=== PATIENT | female | born 1985 | race Caucasian/White ===

== ENCOUNTER → 2019-08-12 | Outpatient (CLI) | payer MEDICAID, SELFPAY ==
[2019-08-12 19:49] LABS: Chlamydia Trachomatis by PCR Negative (Negative); Neisserai gonorrhoeae by PCR Negative (Negative); Probe Check PASS; Sample Adequacy Control PASS; Specimen Processing Control PASS
[2019-11-01 15:35] LABS: HPV Reflexed? NOT INDICATED
== END | disposition home or self-care (01) ==
PROVIDERS: PCP Obstetrics & Gynecology; Referring Provider Obstetrics & Gynecology; Visit Provider Obstetrics & Gynecology
DX: Z12.4 Encounter for screening for malignant neoplasm of cervix (principal); Z11.3 Encounter for screening for infections with a predominantly sexual mode of transmission
CPT/HCPCS: 87491; 87591; 88175; G0145

== ENCOUNTER → 2019-10-14 16:03 | Outpatient (CLI) | payer MEDICAID, SELFPAY ==
[2019-10-14 16:52] LABS: Color, Urine Yellow (Yellow); Glucose, Dipstick Normal (Normal); Ketone-Dipstick 50 mg/dl (Negative); Leukocyte Esterase-Dipstick Negative /ul (Negative); Nitrite-Dipstick Negative (Negative); Occult Blood-Urine Negative /ul (Negative); Protein-Dipstick 15 mg/dl (Negative); Specific Gravity, Urine 1.015 (1.002-1.030); Urine Bilirubin Dipstick Negative (Negative); Urine Clarity Sl. Cloudy (Clear); Urine Urobilinogen Normal (Normal)
[2019-10-14 16:54] LABS: Absolute Lymphocyte Count 2.37 X10^3/uL (0.83-4.51); Absolute Neutrophil Count 8.3 X10^3/uL (2.0-7.7); Basophil# 0.11 X10^3/uL; Basophil% 0.9 % (0-1); Eosinophil# 0.44 X10^3/uL; Eosinophils% 3.5 % (0-5); Hematocrit 36.6 % (37-47); Hemoglobin 12.5 g/dL (12.0-15.0); Lymphocyte # 2.37 X10^3/ul (4.0); Lymphocyte % 19.1 % (19-41); Mean Corp Hgb Conc 34.2 g/dL (32-36); Mean Corpuscular Hgb 32.5 pg (27.0-32.0); Mean Corpuscular Volume 95.1 fL (81-99); Mean Platelet Vol. 10.1 fl (6.2-12.0); Monocyte# 0.77 X10^3/uL; Monocyte% 6.2 % (0-10); NRBC Flagged by Analyzer 0 % (0-5); Neutrophil # 8.29 X10^3/uL (2.7-7.7); Neutrophil % 66.6 % (47-70); Platelet Count 268 K/mm3 (150-450); RBC Distribution Width CV 12.6 % (11.6-14.6); RBC Distribution Width SD 43.8 fl (35.1-43.9); Red Blood Count 3.85 M/mm3 (4.2-5.4); White Blood Count 12.4 K/mm3 (4.4-11.0)
[2019-10-14 17:07] LABS: Amphetamine Urine VISTA NEGATIVE (<1000 ng/mL); Barbiturate Urine VISTA NEGATIVE (< 200 ng/mL); Benzodiazepine Urine VISTA NEGATIVE (< 200 ng/mL); Cocaine Urine VISTA NEGATIVE (< 300 ng/mL); Ecstacy Urine VISTA NEGATIVE (< 500 ng/mL); Methadone Urine VISTA NEGATIVE (< 300 ng/mL); PCP Urine VISTA NEGATIVE (< 25 ng/mL); THC Urine VISTA NEGATIVE (< 50 ng/mL); Vista UDS pH Range 6
[2019-10-14 17:28] LABS: Thyroid Stim Hormone (TSH) 3.25 uIU/mL (0.358-3.74)
[2019-10-17 09:30] LABS: HIV - WCH Non-Reactive (Nonreactive); Hepatitis B Surface Antigen Non-Reactive (Nonreactive); Hepatitis C Antibody Non-Reactive (Nonreactive); Rubella IgG 87.9 IU/mL
[2019-10-20 03:25] LABS: Prenatal RPR NONREACTIVE (NONREACTIVE)
== END ==
PROVIDERS: Visit Provider Obstetrics & Gynecology
DX: Z34.82 Encounter for supervision of other normal pregnancy, second trimester (principal)
CPT/HCPCS: 36415; 80307; 81002; 84443; 85025; 86703; 86762; 86803; 87340

== ENCOUNTER → 2019-12-08 10:56 | Outpatient (CLI) | payer MEDICAID, SELFPAY ==
[2019-12-08 14:12] LABS: Hematocrit 35.7 % (37-47); Hemoglobin 12.1 g/dL (12.0-15.0); Mean Corp Hgb Conc 33.9 g/dL (32-36); Mean Corpuscular Hgb 31.4 pg (27.0-32.0); Mean Corpuscular Volume 92.7 fL (81-99); Mean Platelet Vol. 10.1 fl (6.2-12.0); Platelet Count 270 K/mm3 (150-450); RBC Distribution Width CV 13.2 % (11.6-14.6); RBC Distribution Width SD 44.7 fl (35.1-43.9); Red Blood Count 3.85 M/mm3 (4.2-5.4)
[2019-12-08 14:14] LABS: Glucose Challenge Gest 1H 50g 192 mg/dL (70-140)
== END ==
PROVIDERS: Visit Provider Obstetrics & Gynecology
DX: Z34.83 Encounter for supervision of other normal pregnancy, third trimester (principal)
CPT/HCPCS: 36415; 82950; 85027

== ENCOUNTER → 2019-12-16 09:37 | Outpatient (CLI) | payer MEDICAID, SELFPAY ==
[2019-12-16 10:50] LABS: Glucose GTT-Gestation. Fasting 101 mg/dL (<105)
[2019-12-16 11:44] LABS: Glucose GTT-Gestational 1 Hr 228 mg/dL (<190)
[2019-12-16 13:04] LABS: Glucose GTT-Gestational 2 Hr 211 mg/dL (<165)
[2019-12-16 13:41] LABS: Glucose GTT-Gestational 3 Hr 151 L (<145)
== END ==
PROVIDERS: Referring Provider Obstetrics & Gynecology; Visit Provider Obstetrics & Gynecology
DX: O24.912 Unspecified diabetes mellitus in pregnancy, second trimester (principal); Z3A.00 Weeks of gestation of pregnancy not specified
CPT/HCPCS: 36415; 82951; 82952

== ENCOUNTER 2020-01-02 09:30 | Outpatient (RCR) | payer MEDICAID, SELFPAY | END 2020-01-04 23:59 | LOC: DC 09:30 | PROVIDERS: Visit Provider Obstetrics & Gynecology | DX: Z71.3 Dietary counseling and surveillance (principal); O99.210 Obesity complicating pregnancy, unspecified trimester; E66.9 Obesity, unspecified; Z3A.00 Weeks of gestation of pregnancy not specified | CPT/HCPCS: 97802; G0108 ==

== ENCOUNTER 2020-02-02 11:00 | Outpatient (RCR) | payer MEDICAID, SELFPAY | END 2020-02-02 23:59 | disposition home or self-care (01) | LOC: DC 11:00 | PROVIDERS: Visit Provider Obstetrics & Gynecology | DX: Z71.3 Dietary counseling and surveillance (principal); O24.410 Gestational diabetes mellitus in pregnancy, diet controlled; O99.210 Obesity complicating pregnancy, unspecified trimester; E66.9 Obesity, unspecified; Z3A.00 Weeks of gestation of pregnancy not specified ==

== ENCOUNTER → 2020-02-10 10:23 | Outpatient (CLI) | payer MEDICAID, SELFPAY | PROVIDERS: Referring Provider Obstetrics & Gynecology; Visit Provider Obstetrics & Gynecology | DX: Z03.818 Encounter for observation for suspected exposure to other biological agents ruled out (principal) | CPT/HCPCS: 87635; C9803; U0003 ==

== ENCOUNTER 2020-02-20 11:15 | Outpatient (CLI) | payer MEDICAID, SELFPAY ==
[2020-02-20 11:52] VITALS: BP 126/65; PULSE 84; TEMP 36.4
--- NOTE | 2020-02-20 13:12 | PCM.PN.BLA ---
Progress Note at 38/4w visit to triage for NST due to closure of office today. NST REACTIVE 155/mod reinaldo/+accel/no decel. Reports MENDES with head cold, BP wnl. Precautions given. Discharge home with precautions. F/u for PNV, and 1wfor c/s. STROKE Vital Signs/Narrative: Vital Signs Temp Pulse BP 02/20/20 11:52 97.6 F L 84 126/65 H
== END 2020-02-20 12:00 | disposition home or self-care (01) ==
LOC: WPOUT 11:23 → WP 11:23
PROVIDERS: Referring Provider Obstetrics & Gynecology; Visit Provider Obstetrics & Gynecology
DX: Z34.93 Encounter for supervision of normal pregnancy, unspecified, third trimester (principal)
CPT/HCPCS: 59025; 59050; 99218; G0378

== ENCOUNTER → 2020-02-24 10:20 | Outpatient (CLI) | payer MEDICAID, SELFPAY | PROVIDERS: Referring Provider Student in an Organized Health Care Education/Training Program; Visit Provider Student in an Organized Health Care Education/Training Program | DX: Z03.818 Encounter for observation for suspected exposure to other biological agents ruled out (principal) | CPT/HCPCS: 87635; C9803; U0003 ==

== ENCOUNTER 2020-02-28 04:50 | Inpatient (IN) | payer MEDICAID, SELFPAY ==
[2020-02-28] VITALS (24 sets, daily range): BP systolic 95–122; BP diastolic 42–79; PULSE 59–78; RESP 15–24; TEMP 35.9–36.8; O2SAT 95–100; BMI 44.4
[2020-02-28] MEDS: Acetaminophen 500 MG Tablet 1000 MG PO ×4 (05:17→23:41)
[2020-02-28] MEDS: Lactated Ringers 1,000 ML 999 ML IV (05:29)
[2020-02-28 05:45] LABS: Absolute Lymphocyte Count 3.15 X10^3/uL (0.83-4.51); Absolute Neutrophil Count 10.6 X10^3/uL (2.0-7.7); Basophil# 0.12 X10^3/uL; Basophil% 0.8 % (0-1); Eosinophil# 0.56 X10^3/uL; Eosinophils% 3.6 % (0-5); Hematocrit 38.6 % (37-47); Lymphocyte # 3.15 X10^3/ul (4.0); Lymphocyte % 20.1 % (19-41); Mean Corp Hgb Conc 33.7 g/dL (32-36); Mean Corpuscular Hgb 30.3 pg (27.0-32.0); Mean Platelet Vol. 10.2 fl (6.2-12.0); Monocyte# 1.09 X10^3/uL; Monocyte% 6.9 % (0-10); NRBC Flagged by Analyzer 0 % (0-5); Neutrophil # 10.56 X10^3/uL (2.7-7.7); Neutrophil % 67.3 % (47-70); Platelet Count 289 K/mm3 (150-450); RBC Distribution Width CV 14.2 % (11.6-14.6); Red Blood Count 4.29 M/mm3 (4.2-5.4); White Blood Count 15.7 K/mm3 (4.4-11.0)
[2020-02-28 06:01] LABS: Bedside Glucose 100 mg/dL (70-110)
[2020-02-28] MEDS: Lactated Ringers 1,000 ML 150 ML IV (06:32)
[2020-02-28] MEDS: Sodium Citrate/Citric Acid 30 ML UDC PO (07:05)
[2020-02-28] MEDS: Cefazolin 2 GM in 0.9% Normal Saline 100 ML IV (07:05)
--- NOTE | 2020-02-28 07:22 | PCM.HP.BLA ---
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 reports do occur. . TEST METHODOLOGY: This liquid based ThinPrep(R) pap test was screened with the use of an image guided system. . The HPV DNA reflex criteria were not met with this specimen result therefore, no HPV testing was performed. . Source.............Cervix;Endocervix LMP / Prev Treat...TYH=[id number] No. of containers..01 ThinPrep Vial Reviewed by EVANGELIST Impression /Plan: 39+ week intrauterine for repeat at 39+ weeks gestation. Preparations in progress for delivery.
--- NOTE | 2020-02-28 07:26 | OP.PCM_ITS ---
Delivery Classification: Scheduled Final SHANTA: 03/01/20 Final SHANTA Source: US <20 weeks Gestational age: 39 Weeks and 5 Days automotive parts clerk: Liz Westbrook Type of Anesthesia:: Spinal - With Duramorph Date of Procedure: 02/28/20 Pre-Operative Diagnosis: Prior section, gestational diabetes type A2 Post-Operative Diagnosis: Prior section, gestational diabetes type A2 Description of Procedure: Surgeon: Alcon Cordoba MD, FACOG Anesthesia: Britney Luz CRNA Procedure: Repeat Low Transverse Cervical Caesarean Section, Lysis of Adhesions Findings: Viable male with Apgars of 8/9 in occiput anterior presentation with clear amniotic fluid and normal three-vessel placenta. Dense adhesions of the omentum to the anterior abdominal wall, uterus and sidewalls. Indication: This is a 34-year-old who presents for her fourth at 39+ weeks gestation. care has otherwise been uneventful except for type A2 gestational diabetes on glyburide. The patient has been counseled regarding the risk and indications of this procedure including the possibility of bleeding infection and injury to surrounding structures such as bowel bladder. All questions were answered. Procedure: Patient was taken to the operating room where after spinal anesthesia was placed, the patient was prepped and draped in usual sterile fashion and a Corcoran catheter was placed. The abdomen was entered through the patient's prior Pfannenstiel incision and peritoneum was entered bluntly. Omental adhesions were immediately encountered. After developing a bladder flap on the lower uterine segment a low transverse incision was made on the uterus and head was easily delivered onto the operative field the nose mouth and oropharynx were bulb suctioned. Subsequently a viable male infant was born with Apgars of 8/9. The infant was noted to cry move all extremities vigorously on the operative field. The umbilical cord was doubly clamped and ligated and handed to the nursery personnel who were present for the delivery. Placenta was delivered and noted to be 3 vessels and normal. Uterus was exteriorized and remaining placental tissue was removed. The uterus was then closed in 2 layers first with running locked 0 Vicryl suture followed by a second imbricating layer with 0 Vicryl suture. 0 Vicryl suture was then used in a horizontal mattress interrupted fashion to affect final hemostasis of the uterine incision line. Omental adhesions were taken down in approximately 6 areas ligating each adhesion with 0 Vicryl suture tie. Normal fallopian tubes and ovaries were visualized and the uterus was returned to the pelvis. Hemostasis was noted and rectus abdominis muscles were reapproximated in the midline with interrupted Number 0 Vicryl suture in a horizontal mattress fashion. Fascia was closed with running Number 1 PDS Strata fix suture. Subcutaneous tissue was irrigated with copious amounts of saline solution and then closed with running 3-0 Vicryl suture. Skin was closed with 4-0 monocryl suture in a running subcuticular fashion. Steri strips and a Mepilex dressing were placed across the incision. The patient tolerated the procedure well and was taken to the recovery room in satisfactory condition. Sponge, needle, and instrument counts were all reportedly correct. EBL was less than 500 cc. Ancef 2 gms IV was given prior to the procedure. Spicemen to Pathology: None Complications: None Amniotic Fluid Description: Clear Placenta Disposition: [facility] Specimen(s) sent to pathology: None Drain: Corcoran to straight drain Fluids Replaced: Crystalloid Cord Entanglement: None Cord Vessel Description: 3 Vessels Esitmated Blood Loss (ml): 500 cc Infant Gender: Male (1 minute): 8 (5 minute): 9 Antibiotic Given: Ancef 2 grams IV x1 Pt instructed on risks of surgery: Bleeding, Infection, Injury to surrounding structure(s) including bowel and bladder Complications: None - Admit VTE Documentation VTE Present on Admission: Yes VTE Mechan Device Prophylaxis: SCD's VTE Pharm Prophylaxis ordered?: Yes
--- NOTE | 2020-02-28 08:44 | DCINST_ITS ---
Discharge Diet: No Restrictions Discharge Activity: May not drive while taking narcotic pain medications., May Shower, May Take a Tub Bath May resume sexual activity in: 4-6 weeks Lifting Restrictions: 20 pounds Additional Activity Instructions:: Nothing in the vagina for 4-6 weeks. You may return to work/school in 6 weeks. Call your doctor if your incision/area has: Continuous Slow Oozing, Sudden Increased Bleeding, Increased Pain/ Swelling, Increased Redness, Foul Smelling Discharge Call your doctor if you observe: Fever of 101 or Higher, Inability to urinate, Inability to have a bowel movement, Using more than one pad per hour Additional Instructions: If you experience any of the following, contact your healthcare provider. * Bleeding that soaks a pad every hour for 2 hours * Fever 100.4 or higher * Unrelieved incision or abdominal pain * Swelling, redness, discharge or bleeding from your incision or episiotomy site * Your incision begins to separate * Problems urinating (including inability to urinate or burning while urinating). * Visual changes * Severe headache * Flu-like symptoms * Pain or redness in one of both of your breasts * Pain, warmth, tenderness or swelling in your legs, especially the calf area * Frequent nausea and vomiting * Symptoms of depression or anxiety If you experience any of the following, call 911 or go to the nearest Emergency Room. * Chest pain * Problems breathing * Seizure activity * Partial or complete paralysis of a body part, slurred speech, weakness or drooping of the face, or a sudden inability to walk or hold your balance Allergies/Adverse Reactions: Allergies Penicillins Allergy (Mild, Verified 02/28/20 05:13) Itching rash Medications to take at Discharge Docusate Sodium [Colace] 100 mg PO BID PRN PRN #60 cap 02/28/20 Glyburide 5 mg PO DINNER 02/28/20 Oxycodone [Oxyir] 5 mg PO Q6H PRN PRN 7 Days #20 tablet 02/28/20 The following prescriptions were given: Docusate Sodium [Colace] 100 mg PO BID PRN PRN #60 cap PRN Reason: Constipation Transmission Status: Pending to [facility] Oxycodone [Oxyir] 5 mg PO Q6H PRN PRN 7 Days #20 tablet PRN Reason: Pain Score 6-10 Transmission Status: Sent to [facility] Follow-Up: Call to make an appointment with your doctor for an incision check in 1-2 weeks. You will also need a 6 week post- follow up appointment. Test results from this visit will be discussed in further detail at your follow- up appointment, if applicable. Please Follow Up With: Alcon Cordoba MD - [phone] When: Call to make an appointment for an incision check in 2 weeks. Primary Care Physician: Care Physician,No Primary [Primary Care Provider] -
[2020-02-28] MEDS: Oxytocin 30 units/NS 500 ml 30 UNITS/500 ML IV.SOLN 167 UNITS IV (09:00)
[2020-02-28 09:31] LABS: Bedside Glucose 84 mg/dL (70-110)
[2020-02-28] MEDS: Senna/Docusate Sodium 1 Tablet PO (11:50)
[2020-02-28] MEDS: Lactated Ringers 1,000 ML 100 ML IV ×2 (12:15→20:27)
[2020-02-28] MEDS: Ondansetron 4 MG/2 ML Vial IV (13:06)
--- NOTE | 2020-02-28 13:41 | NURSING ---
Called DR. Cordoba about patient's urinary output of 75cc since 9am today. Dr. Cordoba wants her catheter flushed and a bladder scan done. Orders 250cc bolus of NS if no results from catheter flush and no urinary retention according to bladder scan.
[2020-02-28] MEDS: Ketorolac 30 MG/ML Syringe IV ×2 (14:23→21:14)
--- NOTE | 2020-02-28 14:50 | NURSING ---
Pt's bladder scanned, showed 13ml in bladder. Flushed park catheter with 60mls of sterile water. No clots noted and flushed with ease. Urine clear, dark yellow noted in tubing prior to flushing. Pt nauseated but tolerated procedure well.
[2020-02-28] MEDS: Cefazolin 1 GM/50 ML BAG IV ×2 (15:20→22:47)
[2020-02-28] MEDS: 0.9% Normal Saline 250 ML IV.SOLN. IV (16:51)
[2020-02-28] MEDS: DiphenhydrAMINE 25 MG Capsule PO (17:57)
[2020-02-28] MEDS: Enoxaparin 40 MG/0.4 ML Syringe SC (20:14)
[2020-02-28 21:06] LABS: Anion Gap 7 (5-15); BUN 13 mg/dL (7-18); BUN/Creat Ratio 13.5 RATIO (10-20); Calcium,Total 8.4 mg/dL (8.5-10.1); Chloride 110 mmol/L (98-107); Creatinine, Serum 0.96 mg/dL (0.55-1.02); EST Glomerular Filtration Rate 71 mL/min (>60); Est Glom Filt Rate - Afr Amer 86 mL/min (>60); Estimated Creatinine Clearance 81.81 ml/min; Glucose 131 mg/dL (74-106); Potassium 3.4 mmol/L (3.5-5.1); Sodium Level 139 mmol/L (136-145)
[2020-02-29] VITALS (10 sets, daily range): BP systolic 92–116; BP diastolic 49–68; PULSE 63–110; RESP 14–18; TEMP 36.7–36.8; O2SAT 95–99
[2020-02-29] MEDS: Ketorolac 30 MG/ML Syringe IV ×2 (02:58→09:26)
[2020-02-29] MEDS: 0.9% Saline Lock 10 ML Syringe IV (02:58)
[2020-02-29 06:05] LABS: Bedside Glucose 97 mg/dL (70-110)
[2020-02-29 06:08] LABS: Hematocrit 35.9 % (37-47); Hemoglobin 11.7 g/dL (12.0-15.0); Mean Corp Hgb Conc 32.6 g/dL (32-36); Mean Corpuscular Volume 92.1 fL (81-99); Platelet Count 234 K/mm3 (150-450); RBC Distribution Width CV 14.4 % (11.6-14.6); RBC Distribution Width SD 48.3 fl (35.1-43.9); White Blood Count 13.9 K/mm3 (4.4-11.0)
[2020-02-29] MEDS: Acetaminophen 500 MG Tablet 1000 MG PO ×3 (06:09→18:14)
--- NOTE | 2020-02-29 09:07 | PCM.PN.OB ---
Subjective: Patient without complaints. Tolerating diet well. Pain well controlled. Voiding on own. Denies flatus. Objective: Wound is clean, dry, intact with no drainage noted on Mepilex dressing. Good urine output. Hemoglobin and creatinine okay. - Physical Exam Vitals/I&O's: Vital Signs Temp Pulse Resp BP Pulse Ox 98.2 F 76 16 103/49 L 98 02/29/20 07:47 02/29/20 07:47 02/29/20 07:47 02/29/20 07:47 02/29/20 07:47 Oxygen Delivery Method Room Air Weight: 284 lb Body Mass Index (BMI) 44.4 Intake and Output for Last 24 Hours 02/27/20 02/28/20 02/29/20 23:59 23:59 23:59 Intake Total 3121.66 / 3121.66 Output Total 350 / 350 800 / 800 Balance 2771.66 / 2771.66 -800 / -800 Laboratory Results 02/28/20 09:21: POC Glucose 84 02/28/20 20:30: Sodium 139, Potassium 3.4 L, Chloride 110 H, Carbon Dioxide 22.0, Anion Gap 7, BUN 13, Creatinine 0.96, Estim Creat Clear Calc 81.81, Est GFR (MDRD) Af Amer 86, Est GFR (MDRD) Non-Af 71, BUN/Creatinine Ratio 13.5, Glucose 131 H, Calcium 8.4 L 02/29/20 05:52: POC Glucose 97 02/29/20 05:55: WBC 13.9 H, RBC 3.90 L, Hgb 11.7 L, Hct 35.9 L, MCV 92.1, MCH 30.0, MCHC 32.6, RDW Std Deviation 48.3 H, RDW Coeff of Jeffery 14.4, Plt Count 234, MPV 10.0 Current Medications Acetaminophen (Acetaminophen 500 Mg Tablet) 1,000 mg PO Q6 [facility] Last Admin: 02/29/20 06:09 Dose: 1,000 mg Documented by: Bisacodyl (Bisacodyl 10 Mg Suppository) 10 mg RECTAL UD PRN PRN Reason: If no BM Enoxaparin Sodium (Enoxaparin 40 Mg/0.4 Ml Syringe) 40 mg SC DAILY@1999 [facility] Last Admin: 02/28/20 20:14 Dose: 40 mg Documented by: Hydrocortisone (Hydrocortisone 2.5% Crm) 1 applic TOPICAL TID PRN PRN; Protocol PRN Reason: Discomfort Lactated Ringer's () 1,000 mls @ 100 mls/hr IV .Q10H [facility] Last Admin: 02/29/20 05:46 Dose: Not Given Documented by: Ibuprofen (Ibuprofen 600 Mg Tablet) 600 mg PO Q6H [facility] Methylergonovine Maleate (Methylergonovine 0.2 Mg/Ml Ampul) 0.2 mg IM X1 PRN PRN Reason: Uterine Atony Naloxone HCl (Naloxone 0.4 Mg/Ml Syringe) 0.02 mg IV Q1M PRN PRN Reason: RR <10 and pt unresponsive Naloxone HCl (Naloxone 0.4 Mg/Ml Syringe) 0.02 mg IV Q1M PRN PRN Reason: RR <10 and pt unresponsive Ondansetron HCl (Ondansetron 4 Mg/2 Ml Vial) 4 mg IV Q4H PRN PRN PRN Reason: Nausea Last Admin: 02/28/20 13:06 Dose: 4 mg Documented by: Oxycodone HCl (Oxycodone 5 Mg Tablet) 5 - 10 mg PO Q4H PRN PRN PRN Reason: Pain Score 4-10 Prochlorperazine Edisylate (Prochlorperazine 10 Mg/2 Ml Vial) 10 mg IV Q6H PRN PRN PRN Reason: NAUSEA Senna/Docusate Sodium (Senna/Docusate Sodium 1 Tablet) 0 tablet PO DAILY [facility] Last Admin: 02/28/20 11:50 Dose: 2 tablet Documented by: Simethicone (Simethicone 80 Mg Tablet) 80 mg PO HS PRN PRN Reason: Indigestion/stomach pain Last Admin: 02/28/20 17:55 Dose: 80 mg Documented by: Sodium Chloride (0.9% Saline Lock 10 Ml Syringe) 5 - 15 ml IV UD PRN PRN Reason: SALINE FLUSH Last Admin: 02/29/20 02:58 Dose: 10 ml Documented by: Medical Necessity - Tobacco Use Smoking Status: Former smoker Assessment/Plan Doing well postoperative day #1 status post repeat . Continuing present care.
[2020-02-29] MEDS: Senna/Docusate Sodium 1 Tablet PO (11:53)
[2020-02-29] MEDS: Ibuprofen 600 MG Tablet PO ×2 (14:31→19:39)
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
[2020-02-29] MEDS: Bisacodyl 10 MG Suppository RECTAL (20:03)
[2020-02-29] MEDS: Enoxaparin 40 MG/0.4 ML Syringe SC (22:02)
[2020-03-01] MEDS: Acetaminophen 500 MG Tablet 1000 MG PO ×4 (00:39→18:17)
[2020-03-01] MEDS: Ibuprofen 600 MG Tablet PO ×4 (00:40→18:16)
[2020-03-01 00:42] VITALS: BP 139/70; PULSE 72; RESP 16; TEMP 36.8; O2SAT 96
--- NOTE | 2020-03-01 08:05 | PN.OBGYN_ITS ---
Subjective: Patient without complaints. Tolerating diet well. Positive flatus. Pain well controlled without narcotic. Baby likely able to go home later today. Objective: Afebrile, vital signs stable. Good urine output. - Physical Exam Vitals/I&O's: Vital Signs Temp Pulse Resp BP Pulse Ox 98.2 F 72 16 139/70 H 96 03/01/20 00:42 03/01/20 00:42 03/01/20 00:42 03/01/20 00:42 03/01/20 00:42 Oxygen Delivery Method Room Air Weight: 284 lb Body Mass Index (BMI) 44.4 Intake and Output for Last 24 Hours 02/28/20 02/29/20 03/01/20 23:59 23:59 23:59 Intake Total 3121.66 / 3121.66 Output Total 350 / 350 800 / 800 Balance 2771.66 / 2771.66 -800 / -800 Current Medications Acetaminophen (Acetaminophen 500 Mg Tablet) 1,000 mg PO Q6 [facility] Last Admin: 03/01/20 06:28 Dose: 1,000 mg Documented by: Bisacodyl (Bisacodyl 10 Mg Suppository) 10 mg RECTAL UD PRN PRN Reason: If no BM Last Admin: 02/29/20 20:03 Dose: 10 mg Documented by: Enoxaparin Sodium (Enoxaparin 40 Mg/0.4 Ml Syringe) 40 mg SC DAILY@1999 [facility] Last Admin: 02/29/20 22:02 Dose: 40 mg Documented by: Hydrocortisone (Hydrocortisone 2.5% Crm) 1 applic TOPICAL TID PRN PRN; Protocol PRN Reason: Discomfort Ibuprofen (Ibuprofen 600 Mg Tablet) 600 mg PO Q6H [facility] Last Admin: 03/01/20 06:28 Dose: 600 mg Documented by: Methylergonovine Maleate (Methylergonovine 0.2 Mg/Ml Ampul) 0.2 mg IM X1 PRN PRN Reason: Uterine Atony Naloxone HCl (Naloxone 0.4 Mg/Ml Syringe) 0.02 mg IV Q1M PRN PRN Reason: RR <10 and pt unresponsive Naloxone HCl (Naloxone 0.4 Mg/Ml Syringe) 0.02 mg IV Q1M PRN PRN Reason: RR <10 and pt unresponsive Ondansetron HCl (Ondansetron 4 Mg/2 Ml Vial) 4 mg IV Q4H PRN PRN PRN Reason: Nausea Last Admin: 02/28/20 13:06 Dose: 4 mg Documented by: Oxycodone HCl (Oxycodone 5 Mg Tablet) 5 - 10 mg PO Q4H PRN PRN PRN Reason: Pain Score 4-10 Prochlorperazine Edisylate (Prochlorperazine 10 Mg/2 Ml Vial) 10 mg IV Q6H PRN PRN PRN Reason: NAUSEA Senna/Docusate Sodium (Senna/Docusate Sodium 1 Tablet) 0 tablet PO DAILY [facility] Last Admin: 02/29/20 11:53 Dose: 1 tablet Documented by: Simethicone (Simethicone 80 Mg Tablet) 80 mg PO [facility] PRN PRN Reason: Indigestion/stomach pain Last Admin: 03/01/20 06:32 Dose: 80 mg Documented by: Sodium Chloride (0.9% Saline Lock 10 Ml Syringe) 5 - 15 ml IV UD PRN PRN Reason: SALINE FLUSH Last Admin: 02/29/20 02:58 Dose: 10 ml Documented by: Medical Necessity - Tobacco Use Smoking Status: Former smoker Assessment/Plan Doing well postoperative day #2 status post repeat . Will discharge to home with routine instructions.
[2020-03-01 08:15] VITALS: BP 135/73; PULSE 78; RESP 16; TEMP 36.6; O2SAT 96
[2020-03-01] MEDS: Senna/Docusate Sodium 1 Tablet PO (12:28)
[2020-03-01 13:33] VITALS: BP 123/63; PULSE 79; RESP 16; TEMP 36.6; O2SAT 99
--- NOTE | 2020-03-01 16:54 | NURSING ---
Call placed to José Antonio Bueno to updated on pt's continued gas pain. Informed him that pt had BM last evening after suppository given and last passed gas at 2129. Pt doesnt feel like her belly is anymore distended, she states i feel like i need to pass gas but cant Pt did not eat meals today and current bowel sounds are hypoactive. Dr Bueno states at this time pt still ok to go home and continue with taking stool softeners and Gas X and ambulating around. If still having issues to call office on Thursday. Pt told this plan and she feels comfortable with plan.
[2020-03-01 18:58] VITALS: BP 134/71; PULSE 77; RESP 15; TEMP 36.8
== END 2020-03-01 20:06 | disposition home or self-care (01) | DRG 540 ==
PROVIDERS: Obstetrics & Gynecology; Admitting Provider Obstetrics & Gynecology; Referring Provider Obstetrics & Gynecology; Visit Provider Obstetrics & Gynecology
PROC: 10D00Z1 Extraction of Products of Conception, Low, Open Approach (ICD-10-PCS; CPT 59514; principal; 2020-02-28 07:15)
DX: O34.211 Maternal care for low transverse scar from previous cesarean delivery (principal); O24.425 Gestational diabetes mellitus in childbirth, controlled by oral hypoglycemic drugs; O99.62 Diseases of the digestive system complicating childbirth; K66.0 Peritoneal adhesions (postprocedural) (postinfection); Z87.891 Personal history of nicotine dependence; Z88.0 Allergy status to penicillin; Z3A.39 39 weeks gestation of pregnancy; Z37.0 Single live birth; Z23 Encounter for immunization
CPT/HCPCS: 59025; 80048; 82962; 85025; 85027; 86850; 86900; 86901; 99218; J7050; J7120; A4216; G0378; J2405

== ENCOUNTER → 2020-06-20 | Outpatient (CLI) | payer MEDICAID, SELFPAY ==
[2020-02-28 05:18] VITALS: BMI 44.4
[2020-06-23 03:06] LABS: Chlamydia By Nucleic Acid AMP Negative (Negative)
[2020-06-23 09:27] LABS: Gonococcus By Nucleic Acid AMP Negative (Negative)
== END | disposition home or self-care (01) ==
LOC: LABSPEC 14:12
PROVIDERS: Visit Provider Obstetrics & Gynecology
DX: Z11.3 Encounter for screening for infections with a predominantly sexual mode of transmission (principal)
CPT/HCPCS: 87491; 87591

== ENCOUNTER → 2020-07-11 11:43 | Outpatient (CLI) | payer MEDICAID, SELFPAY ==
[2020-02-28 05:18] VITALS: BMI 44.4
[2020-07-11 13:25] LABS: Color, Urine Yellow (Yellow); Glucose, Dipstick Normal (Normal); Ketone-Dipstick Negative (Negative); Leukocyte Esterase-Dipstick 25 /ul (Negative); Nitrite-Dipstick Negative (Negative); Occult Blood-Urine Negative /ul (Negative); Protein-Dipstick Negative (Negative); Specific Gravity, Urine 1.015 (1.002-1.030); Urine Bilirubin Dipstick Negative (Negative); Urine Clarity Sl. Cloudy (Clear); Urine Urobilinogen Normal (Normal)
[2020-07-11 13:28] LABS: Absolute Lymphocyte Count 2.67 X10^3/uL (0.83-4.51); Absolute Neutrophil Count 5.7 X10^3/uL (2.0-7.7); Basophil# 0.07 X10^3/uL; Basophil% 0.7 % (0-1); Eosinophils% 6.1 % (0-5); Hematocrit 41.4 % (37-47); Hemoglobin 13.9 g/dL (12.0-15.0); Lymphocyte # 2.67 X10^3/ul (4.0); Lymphocyte % 27.2 % (19-41); Mean Corp Hgb Conc 33.6 g/dL (32-36); Mean Corpuscular Hgb 30.2 pg (27.0-32.0); Mean Platelet Vol. 10.1 fl (6.2-12.0); Monocyte# 0.66 X10^3/uL; Monocyte% 6.7 % (0-10); NRBC Flagged by Analyzer 0 % (0-5); Neutrophil # 5.73 X10^3/uL (2.7-7.7); Neutrophil % 58.6 % (47-70); Platelet Count 294 K/mm3 (150-450); RBC Distribution Width CV 13.7 % (11.6-14.6); RBC Distribution Width SD 45.1 fl (35.1-43.9); White Blood Count 9.8 K/mm3 (4.4-11.0)
[2020-07-11 14:13] LABS: HIV - WCH Non-Reactive (Nonreactive); Hepatitis B Surface Antigen Non-Reactive (Nonreactive); Hepatitis C Antibody Non-Reactive (Nonreactive); Rubella IgG Reactive (Nonreactive); Syphilis Antibodies Non-reactive
== END ==
PROVIDERS: Visit Provider Obstetrics & Gynecology
DX: Z34.81 Encounter for supervision of other normal pregnancy, first trimester (principal)
CPT/HCPCS: 36415; 81002; 84443; 85025; 86703; 86762; 86780; 86803; 87340

== ENCOUNTER → 2020-08-30 12:07 | Outpatient (CLI) | payer MEDICAID, SELFPAY ==
[2020-02-28 05:18] VITALS: BMI 44.4
[2020-08-30 14:14] LABS: Thyroid Stim Hormone (TSH) 3.05 uIU/mL (0.358-3.74)
== END ==
PROVIDERS: Visit Provider Obstetrics & Gynecology
DX: Z86.32 Personal history of gestational diabetes (principal)
CPT/HCPCS: 36415; 83036; 84443

== ENCOUNTER → 2020-09-26 14:49 | Outpatient (CLI) | payer MEDICAID, SELFPAY ==
[2020-02-28 05:18] VITALS: BMI 44.4
[2020-09-26 15:53] LABS: Hematocrit 36.3 % (37-47); Hemoglobin 12.4 g/dL (12.0-15.0); Mean Corp Hgb Conc 34.2 g/dL (32-36); Mean Corpuscular Hgb 31.4 pg (27.0-32.0); Mean Corpuscular Volume 91.9 fL (81-99); Platelet Count 267 K/mm3 (150-450); RBC Distribution Width CV 12.9 % (11.6-14.6); RBC Distribution Width SD 43.4 fl (35.1-43.9); Red Blood Count 3.95 M/mm3 (4.2-5.4); White Blood Count 10.5 K/mm3 (4.4-11.0)
[2020-09-26 16:13] LABS: Glucose Challenge Gest 1H 50g 141 mg/dL (70-140); Thyroid Stim Hormone (TSH) 4.19 uIU/mL (0.358-3.74)
== END ==
PROVIDERS: Visit Provider Obstetrics & Gynecology
DX: O99.282 Endocrine, nutritional and metabolic diseases complicating pregnancy, second trimester (principal); E03.9 Hypothyroidism, unspecified; Z51.81 Encounter for therapeutic drug level monitoring
CPT/HCPCS: 36415; 82950; 84443; 85027

== ENCOUNTER → 2020-11-22 09:58 | Outpatient (CLI) | payer MEDICAID, SELFPAY ==
[2020-02-28 05:18] VITALS: BMI 44.4
[2020-11-22 11:12] LABS: Glucose GTT-Gestation. Fasting 102 mg/dL (<105)
[2020-11-22 11:45] LABS: Glucose GTT-Gestational 1 Hr 212 mg/dL (<190)
[2020-11-22 14:30] LABS: Glucose GTT-Gestational 2 Hr 216 mg/dL (<165)
[2020-11-22 14:36] LABS: Glucose GTT-Gestational 3 Hr 138 L (<145)
== END ==
PROVIDERS: Referring Provider Obstetrics & Gynecology; Visit Provider Obstetrics & Gynecology
DX: O24.912 Unspecified diabetes mellitus in pregnancy, second trimester (principal); Z3A.00 Weeks of gestation of pregnancy not specified
CPT/HCPCS: 36415; 82951; 82952

== ENCOUNTER → 2021-01-17 12:35 | Outpatient (CLI) | payer MEDICAID, SELFPAY | PROVIDERS: Visit Provider Obstetrics & Gynecology | DX: Z36.85 Encounter for antenatal screening for Streptococcus B (principal) | CPT/HCPCS: 87081 ==

== ENCOUNTER 2021-02-01 05:00 | Inpatient (IN) | payer MEDICAID, SELFPAY ==
[2020-02-28 05:18] VITALS: BMI 44.4
[2021-02-01] VITALS (21 sets, daily range): BP systolic 97–125; BP diastolic 42–68; PULSE 71–87; RESP 16–20; TEMP 36.1–36.4; O2SAT 95–100; BMI 45.4
[2021-02-01] MEDS: Lactated Ringers 1,000 ML 999 ML IV (05:40)
[2021-02-01 05:44] LABS: Absolute Lymphocyte Count 2.66 X10^3/uL (0.83-4.51); Absolute Neutrophil Count 7.7 X10^3/uL (2.0-7.7); Basophil# 0.07 X10^3/uL; Basophil% 0.6 % (0-1); Eosinophil# 0.43 X10^3/uL; Eosinophils% 3.6 % (0-5); Hematocrit 35.3 % (37-47); Hemoglobin 11.9 g/dL (12.0-15.0); Lymphocyte # 2.66 X10^3/ul (0.83-4.51); Mean Corp Hgb Conc 33.7 g/dL (32-36); Mean Corpuscular Hgb 28.7 pg (27.0-32.0); Mean Corpuscular Volume 85.1 fL (81-99); Mean Platelet Vol. 10.1 fl (6.2-12.0); Monocyte# 1.07 X10^3/uL; Monocyte% 8.9 % (0-10); NRBC Flagged by Analyzer 0 % (0-5); Neutrophil # 7.71 X10^3/uL (2.7-7.7); Neutrophil % 63.7 % (47-70); Platelet Count 255 K/mm3 (150-450); RBC Distribution Width CV 14.4 % (11.6-14.6); RBC Distribution Width SD 44.2 fl (35.1-43.9); Red Blood Count 4.15 M/mm3 (4.2-5.4); White Blood Count 12.1 K/mm3 (4.4-11.0)
[2021-02-01] MEDS: Acetaminophen 500 MG Tablet 1000 MG PO ×2 (06:03→15:37)
[2021-02-01 06:10] LABS: Bedside Glucose 102 mg/dL (70-110)
[2021-02-01] MEDS: Lactated Ringers 1,000 ML 150 ML IV (06:45)
[2021-02-01] MEDS: Sodium Citrate/Citric Acid 30 ML UDC PO (07:06)
--- NOTE | 2021-02-01 07:32 | HP.PCM_ITS ---
History and Physical Date of Admission: 02/01/21 ACOG ANTEPARTUM RECORD - HISTORY AND PHYSICAL (02/01/2021) Name: NICOL VILLEGAS History of this : This is a 35 year old [id number] presents at 38 wks + 2 days gestation for repeat section and tubal. care remarkable for gestational diabetes intermittently controlled with glyburide. Recently poorly controlled. Baby also with breech presentation. 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 : 1985 Age: 35 Address: [address] [place] [address] Phone: [phone]) [phone] Insurance Carrier: [facility] Banyan [id number] Emergency Contact: RAYMUNDO VILLEGAS/SPOUSE [phone] ...................................................................... Final SHANTA: 02/13/21 By Ultrasound: 9 weeks 0 days PARITY: (G-Total Pregnancies P-Fullterm,Premature,Induced AB,Spont AB, Ectopics, Multiple,Living) SHANTA CONFIRMATION: By LMP: 05/03/20 By First Ultrasound Exam: 02/13/21 Final SHANTA: 02/13/21 OB PROBLEM LIST: GDMA2 plans RCS ALLERGIC TO PCN!! Baby with PROMINANT RT ADRENAL GLAND noted 36 weeks--notify peds peripartum Declines genetic and carrier screening FBS out of control--start Glyburide 30 weeks gestation; BPP q wk start 32 wks; add weekly NST at about 34-35 weeks GDMA2, Glyburide --last ; check HgbA1c with pn labs and 1 hour PG at 20 and 28 weeks--has G----Has GDM this Hypothyroidism--start synthroid 50 mcg daily Short interval between pregnancies ALLERGIES: Pcn Rash Penicillins Hives and/or rash MEDICATIONS: glyburide 1.25 mg tablet Two pills by mouth once a day Humalog U-100 Insulin 100 unit/mL subcutaneous cartridge 10 units TID with meals Levemir FlexTouch U-100 Insulin 100 unit/mL (3 mL) subcutaneous pen 15 units in am, 40 units pm 28 mg iron-800 mcg tablet One pill by mouth once a day Synthroid 75 mcg tablet One pill by mouth once a day SOCIAL HISTORY: Smoking - used to smoke but quit Alcohol Use - denies drinking Diet - moderate, balanced diet Lifestyle - moderate stress lifestyle and Exercise - active 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 Drug Use - denies use of street drugs Sexual Activity - Residence - lives with and Just built a house Place of - [place] Hours Worked - 40 hours per week Spouse-Sig Other Name - Raymundo Spouse-Sig Other Occupation - Self-Employed/Landscape/construction Spouse-Sig Other Phone No - [phone] Children Name(s) - Gab, NanetteJulius hyde Milo PRIOR DELIVERY HISTORY DEL DATE GEST LAB WT LB WT 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 TX Jan 21 5 0 0 0 Sab None No Mar 19 39 0 7 6 C-Sec Spinal No Sep 12 39 0 7 8 C-Sec Spinal No Jul 12 41 24 7 4 C-Sec Epidural No Feb 23 39 0 8 15 C-Sec Spinal No ANTEPARTUM FLOW CHART VISIT GE RTC FU F F NE U U DATE WK MD WKS HT PN HR M SS BP ED WT NE GL D EF ST __ ____ ___ __ __ ___ __ __ __ ___ __ __ __ ___ __ 28 Oct 38 JMW 3 38 V + + 120/68 sl 299 tr - 21 Oct 37 JMW 1 38 B + 128/84 sl 295 tr - 18 Oct 36 + + 110/70 sl 297 tr 1+ 14 Oct 36 JMW 1 36 B + + 134/76 sl 295 tr - ft 50 hi 11 Oct 35 CM + + 110/60 1+ 299 tr tr 07 Oct 35 JMW 1 35 V + + 114/76 sl 297 - tr 30 Sep 34 JM 1 34 B on + 124/60 sl 295 tr - 27 Sep 33 JM + + 106/58 0 292 tr ne 23 Sep 33 JMW 1 33 + + 136/80 sl 294 tr - 16 Sep 32 JMW 1 33 + + 134/68 sl 295 tr 2+ 09 Sep 31 JMW 1 32 + + 122/60 0 294 tr ne 02 Sep 30 JMW 1 31 + + 130/82 1+ 295 tr - 17 Nov 27 JMW 2 27 + + 118/74 sl 297 tr 2+ 22 Akira 24 JM 4 24 - + + 128/76 sl 294 tr - 23 Hugo JMW 4 20 + + 126/72 0 288 tr ne August 19 JMW 4 16 + O 134/82 sl 285 - - 05 August 16 JMW 4 12 + 100/68 0 282 ne ne 07 Jul 10 JMW 4 U+ 126/74 0 274 ne ne ANTEPARTUM NOTE(S): Jan 31 2021: FBS 109; NST marginal, BPP 8/8. Move C/S to 02/01Jan 24 2021: Ctxs-occas Jan 21 2021: Jan 17 2021: Sono Today, GBS Today,LARC form signed Jan 14 2021: Jan 10 2021: BSs ok; Reactive NST, tubal consent signed Jan 03 2021: See prog note Dec 31 2020: Dec 27 2020: BS poorly controlled start Levemir Dec 20 2020: FBS marginal; inc glyburide to 3.75 mg in PM Dec 13 2020: inc Glyburide to 2.5 at hs for elev FBSs Dec 06 2020: ? Ear Infection,Blood Sugars Copied Nov 20 2020: Good FM Oct 25 2020: Glucola/Instructions Given,Good FM Sep 26 2020: US today Aug 30 2020: concerned about edema, Declines AFP, ck TSH/HgbA1c Aug 08 2020: Doing Well Jul 11 2020: US today, labs, genetic packet COMPREHENSIVE ANTEPARTUM NOTE(S): Jan 31 2021: Nicol is here for her NST at 38 w 1 d, she states that she is so ready to have this baby. Repeat C/S scheduled for 02/07/2021. Nicol reports good FM. She denies spotting/LoF, but feels irregular mild cramping. Slight edema noted below knees. Acoustic stim used x 1. Accelerations noted with FM, but baby is not as active during NST today. NST reactive, read per Dr. Cordoba. BPP added today; Jan 29 2021: H faxed to OB. tkg Jan 21 2021: Kelsea is here for a NST. Feeling ok. Rushed this morning so no breakfast- only coffee with cream. Urine glucose 1+. Enc to grab quick breakfast source of protein as cheese stick or protein bar or toast w peanut butter. NST reactive per Dr AMES. DR Leon. Jan 14 2021: Nicol is here for NST at 35.5 w. Feeling well. Baby active. Voices no c/o today. Ankles puffy benito. NST read as reactive by Dr CM. MEYERS Jan 10 2021: Nicol is here at 35 w 1 d for her NST, to be followed by a PNV with Dr. Cordoba. She states that she is feeling has been feeling constant low back/hip/pelvic/vaginal/leg pain since Thursday. She feels occasional mild cramping, and denies spotting/LOF. Good FM noted. Slight edema noted below knees. Blood sugars copied for review. NST reactive, read per Dr. Cordoba. AW Jan 03 2021: Patient is here today for visit. Patient provided copy of most recent BS recordings, she states that she was seen in the office on Thursday for NST and had AM insulin dose increased at that time to 15 unit and continues with 35 units AC dinner, Jlb Jan 03 2021: 34 weeks, BPP 8/8. GDM A2 currently on Levemir 15U qam and 35U qpm. Fasting 90-105 2hr PP 110-130. Will increase insulin to Levemir 15U qam and 40U qpm, along with Humalog 10U TID. Continue current testing. MARLON Dec 31 2020: Nicol is here at 33.5 w for initial NST. Procedure reviewed and questions answered. NST read as reactive per Dr MASON. Baby active. She is feeling well. Concerns re BS being higher than optimal. Feels she is eating smaller, healthy meals. numbers are mostly 100-[address] MASON. To change insulin dosage to 15 units before breakfast an 35 before supper. She is agreeable. Write down Dec 13 2020: Nicol is here for PNV. Currently on ATB for ear infection. Thinks she has a yeast infection. Having vaginal burning, itching and discharge. No odar. Forgot to bring BS with her today. Shares that early am and late pm BS run high but during day seem more WNL. Having good FM. No edema noted today. Urine tr/neg. LSS Dec 06 2020: Nicol presents here today for PNV and blood sugars copied for chart. She admits that she could not start doing them right away as they were in [facility] on vacation and no supplies with her until she returned. Good FM. Possible ear ache/infection starting. CEE Nov 20 2020: Nicol is here at 27.6 for visit. Baby moves well. Only c/o is headaches daily w some requiring Tylenol and others milder. Has been checking BS at home and thinks higher levels equal a headache. Has 3 h glucose testing sched for Thurs. Urine today is trace/2+. LUIGI. Oct 25 2020: 24 weeks, previously with failed early 1 hour GTT no follow-up. Was originally scheduled for repeat 1 hour GTT, after discussion will schedule for 3-hour GTT now and based on results treat appropriately. Discussed importance of blood sugar control in . For repeat section. Sep 26 2020: Nicol is here for PNV following US. Had GCT and labs, including CBC and TSH. Believes she has started to feel FM. No swelling presently but adds she does swell if she has been on her feet for a long time. Feeling well without complaints. Urine tr/neg. LSS Aug 30 2020: Nicol is here for a PNV at 16 weeks. Feeling good. Denies cramping/ spotting. Concerns regarding edema when she is on her feet a lot due to her 4 children. MK Aug 08 2020: Nicol is here for pNV. Feeling well with no complaints. Has started on synthroid as instructed. Discussed need for repeat TSH level between August 15-. No edema noted today urine neg/neg. LSS Jul 13 2020: TELEHEALTH NOB VISIT, 25 MINUTE DURATION. Nicol is a 35 year old A1 L4 with an SHANTA of 02/13/2021, current GA is 9 w 2 d. She resides with her , and their four children, all of whom were delivered by C- Section. Her youngest was born at [facility] in February of 2020. Past hi story updated. Nicol had GDM during her last , and was put on Glyburide. She states that her y Jul 11 2020: Nicol is here for PNV following US. Genetic packet given. States she is feeling well with very little nausea coming only in waves occ. No vomiting. Some mild lower back pains. No vag bleeding or spotting. No complaints today. Urine neg/neg. LSS NEW REVIEW OF SYSTEMS: GENERAL - Denies fever, or chills SKIN - Denies rash, new skin lesions, or change in moles EYES - Denies blurred vision, or change in visual acuity EARS - Denies ear pain, or difficulty hearing NOSE - Denies nasal congestion, discharge, or bleeding MOUTH - Denies sore throat, or difficulty swallowing NECK - Denies pain or swelling RESPIRATORY - Denies shortness of breath, cough, wheezing CARDIOVASCULAR - Denies palpitations, chest pain, orthopnea, PND, peripheral edema, syncope or claudication GASTROINTESTINAL - Denies nausea, vomiting, diarrhea, constipation, Denies abdominal pain, melena and or bright red blood GENITOURINARY - Denies dysuria, frequency of urination, urgency, or hesitancy MUSCULOSKELETAL - Denies joint or muscle pain, or back pain NEUROLOGICAL - Denies localized numbness, weakness, or tingling PSYCHIATRIC - Denies depression, anxiety, substance abuse or suicide attempts ENDOCRINE - Denies heat or cold intolerance, weight loss or gain, increasing thirst HEMATO-IMMUNOLOGIC - Denies easy bruising, bleeding, oral ulcerations or recurrent infections GENETICS SCREENING: Age 35+ years: No Thalassemia: No Neural Tube Defect: No Down Syndrome: No GIACOMO-SACHS: No Sickle Cell Disease: No Hemophilia: No Musc. Dystrophy: No Cystic Fibrosis: No-declines screening [place] Chorea: No Mental Retardation: No Fragile X: No Other genetic: No Other defects: No SABs/still births: No Drugs since LMP: No Comments: FOB has an uncle with special needs INFECTION HISTORY: High risk AIDS: No High risk Hepatitis: No Exposed to TB: No Exposed to Herpes: No Rash/viral illness since LMP: No History of STD: No MENSTRUAL HISTORY: *Menses Amount/Duration: 4 daysMenses Regularity: RegularFrequency: 30HCG+: 01/24/2008* PAST SUMMARY: PARITY: 1. Total Pregnancies............ 6 2. Full Term Pregnancies........ 4 3. Premature.................... 0 4. Abortions - Induced.......... 0 5. Abortions - Spontaneous...... 1 6. Ectopics..................... 0 7. Multiple Births.............. 0 8. Living Children.............. 4 PAST #1: Date of :.................. 07/20/07 Gestation Weeks:................ 41 Length of labor(hours):......... 24 Sex:............................ F Weight-lbs:............... 7 Weight-oz:................ 4 Type of Delivery:............... C-Sect Type of Anesthesia:............. Epidural Place of Delivery:.............. [place] Treatment of Labor?:.... No Comment: PAST #2: Date of :.................. 09/11/08 Gestation Weeks:................ 39 Length of labor(hours):......... 0 Sex:............................ F Weight-lbs:............... 7 Weight-oz:................ 8 Type of Delivery:............... C-Sect Type of Anesthesia:............. Spinal Place of Delivery:.............. [place] Treatment of Labor?:.... No Comment: PAST #3: Date of :.................. 03/13/14 Gestation Weeks:................ 39 Length of labor(hours):......... 0 Sex:............................ M Weight-lbs:............... 7 Weight-oz:................ 6 Type of Delivery:............... C-Sect Type of Anesthesia:............. Spinal Place of Delivery:.............. [place] Treatment of Labor?:.... No Comment: PAST #4: Date of :.................. 01/04/18 Gestation Weeks:................ 5 Length of labor(hours):......... 0 Sex:............................ Weight-lbs:............... 0 Weight-oz:................ 0 Type of Delivery:............... Sab Type of Anesthesia:............. None Place of Delivery:.............. none Treatment of Labor?:.... No Comment: DATE APPROX PAST #5: Date of :.................. 02/28/20 Gestation Weeks:................ 39 Length of labor(hours):......... 0 Sex:............................ M Weight-lbs:............... 8 Weight-oz:................ 15 Type of Delivery:............... C-Sect Type of Anesthesia:............. Spinal Place of Delivery:.............. [place] Treatment of Labor?:.... No Comment: GDM-GLYBURIDE PHYSICAL EXAMINATION General Appearence: 35 yo female in no acute distress Vital Signs: AF, VSS Heart: RRR without rubs or gallops Lungs: CTA x 2 Breasts: deferred Abdomen: gravid Pelvis: Cervix: Presentation: cephalic Station: Fetus: Size: AGA Movement: present Heart: present LAB TEST(S) ORDERED SINCE:05/19/20 02/01/2021 TYPE AND SCREEN 02/01/2021 COVID 19 AG RAPID (RN COLLECT) 02/01/2021 CBC W/DIFF, AUTOMATED 02/01/2021 BEDSIDE GLUCOSE 01/20/2021 RULE OUT BETA STREP (GRP. B) 11/22/2020 GESTATIONAL GTT 3HR 100G 09/26/2020 THYROID STIM HORMONE (TSH) 09/26/2020 GLUCOSE CHALLENGE GEST 1H 50G 09/26/2020 CBC-COMPLETE BLOOD CNT NO DIFF 08/30/2020 THYROID STIM HORMONE (TSH) 08/30/2020 HEMOGLOBIN A1C 07/11/2020 URINE DRUG SCREEN (VISTA) 07/11/2020 URINALYSIS, ROUTINE (DIPSTICK) 07/11/2020 THYROID STIM HORMONE (TSH) 07/11/2020 RUBELLA IGG 07/11/2020 T AND S-NO CHARGE W/PNP 07/11/2020 L509.8000 07/11/2020 HIV - [facility] 07/11/2020 HEPATITIS C ANTIBODY 07/11/2020 HEPATITIS B SURFACE ANTIGEN 07/11/2020 CBC W/DIFF, AUTOMATED 06/23/2020 CHLAMYDIA/GC SAMY APTIMA == ==== Order Observation Description Value Ref_Range A* Site == ==== COVID 19 AG RAP NOTE [facility] BEDSIDE GLUCOSE NOTE [facility] BEDSIDE GLUCOSE FINGERSTICK GLU 102 mg/dL 70-110 POCL MANAGEMENT OF PATIENT CARE PER NURSING PROTOCOL S [facility]~[address] [place], [address]~ TYPE AND SCRE AB SCREEN GEL NEGATIVE ML CBC W/DIFF, AUT NOTE [facility] CBC W/DIFF, AUT WBC 12.1 K/mm3 4.4-11.0 H ML CBC W/DIFF, AUT RBC 4.15 M/mm3 4.2-5.4 L ML CBC W/DIFF, AUT HGB 11.9 g/dL 12.0-15.0 L ML CBC W/DIFF, AUT HCT 35.3 37-47 L ML CBC W/DIFF, AUT MCV 85.1 fL 81-99 ML CBC W/DIFF, AUT MCH 28.7 pg 27.0-32.0 ML CBC W/DIFF, AUT MCHC 33.7 g/dL 32-36 ML CBC W/DIFF, AUT RDW CV 14.4 11.6-14.6 ML CBC W/DIFF, AUT RDW SD 44.2 fl 35.1-43.9 H ML CBC W/DIFF, AUT PLT 255 K/mm3 150-450 ML CBC W/DIFF, AUT MPV 10.1 fl 6.2-12.0 ML CBC W/DIFF, AUT NEUT% 63.7 47-70 ML CBC W/DIFF, AUT LY% 22.0 19-41 ML CBC W/DIFF, AUT MONO% 8.9 0-10 ML CBC W/DIFF, AUT EO% 3.6 0-5 ML CBC W/DIFF, AUT BASO% 0.6 0-1 ML CBC W/DIFF, AUT IG% 1.200 0.0-0.9 H ML IG% - Immature Granulocytes (promyelocytes, myelocytes and metamyelocytes) > 1% indicates that a LEFT SHIFT is Present. CBC W/DIFF, AUT ABSOLUTE NEUT 7.7 X10 3/uL 2.0-7.7 ML CBC W/DIFF, AUT ABSOLUTE LYMPH 2.66 X10 3/uL 0.83-4.51 ML CBC W/DIFF, AUT NUCLEATED RBC 0 0-5 ML RULE OUT BETA S NOTE [facility] GESTATIONAL GTT NOTE [facility] GESTATIONAL GTT 3HR GTT- GEST. MG/DL H ML FASTING 102 Col: 11/22/20 1009 GLUCOSE TOLERANCE TEST FOR Reference Interval GESTATIONAL DIABETES Fasting <105 mg/dL 1 hour <190 mg/dl 2 hour <165 mg/dl 3 hour <145 mg/dl 1 HR GLU 212 H Col: 11/22/20 1113 2 HR GLU 216 H Col: 11/22/20 1214 3 HR GLU 138 Col: 11/22/20 1314 THYROID STIM HO NOTE [facility]ONS THYROID STIM HO TSH 4.19 uIU/mL 0.358-3.74 H ML GLUCOSE CHALLEN NOTE [facility] GLUCOSE CHALLEN GLU GEST 50G 1H 141 mg/dL 70-140 H ML CBC-COMPLETE BL NOTE [facility]ONS CBC-COMPLETE BL WBC 10.5 K/mm3 4.4-11.0 ML CBC-COMPLETE BL RBC 3.95 M/mm3 4.2-5.4 L ML CBC-COMPLETE BL HGB 12.4 g/dL 12.0-15.0 ML CBC-COMPLETE BL HCT 36.3 37-47 L ML CBC-COMPLETE BL MCV 91.9 fL 81-99 ML CBC-COMPLETE BL MCH 31.4 pg 27.0-32.0 ML CBC-COMPLETE BL MCHC 34.2 g/dL 32-36 ML CBC-COMPLETE BL RDW CV 12.9 11.6-14.6 ML CBC-COMPLETE BL RDW SD 43.4 fl 35.1-43.9 ML CBC-COMPLETE BL PLT 267 K/mm3 150-450 ML CBC-COMPLETE BL MPV 10.0 fl 6.2-12.0 ML THYROID STIM HO NOTE [facility]ONS THYROID STIM HO TSH 3.05 uIU/mL 0.358-3.74 ML HEMOGLOBIN A1C NOTE [facility] HEMOGLOBIN A1C HGB A1C 5.0 3.8-5.6 ML Normal < 5.7 % Prediabetic 5.7 - 6.4 % Diabetic >or= 6.5 % Please note range changes. PN N [facility]~[address] [place], [address]~ T AND AB SCREEN GEL NEGATIVE ML HEPATITIS C ANT NOTE [facility] HEPATITIS C ANT HEPATITIS C AB Non-Reactive Nonreactive ML Non Reactive: < 0.8 Equivocal: >/= 0.8 to < 1.0 Reactive: >/= 1.0 The CDC recommends that a reactive/equivocal HCV antibody result be followed up by the HCV Nucleic Acid Amplification test (270925) HEPATITIS B CHRISTEN NOTE [facility] HEPATITIS B CHRISTEN HEP B SURF AG Non-Reactive Nonreactive ML HIV - [facility] NOTE [facility] HIV - [facility] HIV Non-Reactive Nonreactive ML L509.8000 NOTE [facility] L509.8000 SYPHILIS ABS Non-reactive ML RUBELLA IGG NOTE [facility] RUBELLA IGG RUBELLA IGG Reactive Nonreactive ML Antibody Results Interpretation of Immune Status Non Reactive Presumed Non-Immune Equivocal Equivocal Reactive Presumed Immune THYROID STIM HO NOTE [facility] THYROID STIM HO TSH 11.80 uIU/mL 0.358-3.74 H ML CBC W/DIFF, AUT NOTE [facility] CBC W/DIFF, AUT WBC 9.8 K/mm3 4.4-11.0 ML CBC W/DIFF, AUT RBC 4.60 M/mm3 4.2-5.4 ML CBC W/DIFF, AUT HGB 13.9 g/dL 12.0-15.0 ML CBC W/DIFF, AUT HCT 41.4 37-47 ML CBC W/DIFF, AUT MCV 90.0 fL 81-99 ML CBC W/DIFF, AUT MCH 30.2 pg 27.0-32.0 ML CBC W/DIFF, AUT MCHC 33.6 g/dL 32-36 ML CBC W/DIFF, AUT RDW CV 13.7 11.6-14.6 ML CBC W/DIFF, AUT RDW SD 45.1 fl 35.1-43.9 H ML CBC W/DIFF, AUT PLT 294 K/mm3 150-450 ML CBC W/DIFF, AUT MPV 10.1 fl 6.2-12.0 ML CBC W/DIFF, AUT NEUT% 58.6 47-70 ML CBC W/DIFF, AUT LY% 27.2 19-41 ML CBC W/DIFF, AUT MONO% 6.7 0-10 ML CBC W/DIFF, AUT EO% 6.1 0-5 H ML CBC W/DIFF, AUT BASO% 0.7 0-1 ML CBC W/DIFF, AUT IG% 0.700 0.0-0.9 ML IG% - Immature Granulocytes (promyelocytes, myelocytes and metamyelocytes) > 1% indicates that a LEFT SHIFT is Present. CBC W/DIFF, AUT ABSOLUTE NEUT 5.7 X10 3/uL 2.0-7.7 ML CBC W/DIFF, AUT ABSOLUTE LYMPH 2.67 X10 3/uL 0.83-4.51 ML CBC W/DIFF, AUT NUCLEATED RBC 0 0-5 ML URINALYSIS, ROU NOTE [facility] URINALYSIS, ROU COLOR Yellow Yellow ML URINALYSIS, ROU URINE CLARITY Sl. Cloudy Clear ML URINALYSIS, ROU GLUCOSE, UR Normal mg/dl Normal ML URINALYSIS, ROU BILIRUBIN URINE Negative mg/dL Negative ML URINALYSIS, ROU KETONE UR Negative mg/dl Negative ML URINALYSIS, ROU SP.GR. DIPSTX 1.015 1.002-1.030 ML URINALYSIS, ROU PH UR 6.0 5.0 - 8.0 ML URINALYSIS, ROU PROT DIPSTX Negative mg/dl Negative ML URINALYSIS, ROU UROBILI Normal mg/dl Normal ML URINALYSIS, ROU NITRITE Negative Negative ML URINALYSIS, ROU OCCULT BLOOD-UR Negative /ul Negative ML URINALYSIS, ROU LEUK ESTERASE 25 /ul Negative A ML URINE DRUG SCRE NOTE [facility] URINE DRUG SCRE DRUG CONFIRM ML CONFIRMATORY TESTING FOR ALL POSITIVE URINE DRUG SCREEN RESULTS WILL ONLY BE SENT OUT UPON PHYSICIAN ORDER. VISTA Urine Drug Screen methods provide only preliminary analytical test results. A more specific alternate chemical method must be used in order to obtain a confirmed analytical result. Gas chromatography/mass spectrometery (GC/MS) is the preferred confirmatory method. Clinical consideration and professional judgement should be applied to any drug of abuse test result, particularly when preliminary positive results are used. URINE TCA TESTING MUST BE ORDERED SEPARATELY. USE TEST MNEMONIC: UTCA URINE DRUG SCRE VISTA UDS PH ML URINE DRUG SCRE AMPHETAMINES <1000 ng/mL ML URINE DRUG SCRE BARBITIURATES < 200 ng/mL ML URINE DRUG SCRE BENZODIAZIPINE < 200 ng/mL ML URINE DRUG SCRE COCAINE < 300 ng/mL ML URINE DRUG SCRE ECSTACY < 500 ng/mL ML URINE DRUG SCRE METHADONE < 300 ng/mL ML URINE DRUG SCRE OPIATES < 300 ng/mL ML URINE DRUG SCRE PCP < 25 ng/mL ML URINE DRUG SCRE THC < 50 ng/mL ML CHLAMYDIA/GC NA NOTE [facility] CHLAMYDIA/GC NA CHLAMY,NUC ACID Negative Negative LCI CHLAMYDIA/GC NA GC BY NUC ACID Negative Negative LCI Performed at: =[facility] [place] [id number] [employer]: Mikayla Sarmiento MD, Phone: [phone] *Negative results from patients with symptom onset beyond five days should be treated as presumptive and confirmed by a molecular assay if clinically necessary. Negative results should not be used as the sole basis for treatment or for patient management. COVID 19 AG RAPID (RN COLLECT) *Positive results do not differentiate between SARS-CoV and SARS-CoV-2. If differentation of the specific SARS virus is desired an additional sample and an additional order is required. COVID 19 AG RAPID (RN COLLECT) * This test has not been FDA cleared or approved; the test has been authorized by FDA under an Emergency Use Authorization (EAU) for use by laboratories certified under CLIA that meet the requirements to perform moderate, high, or waived complexity tests. COVID 19 AG RAPID (RN COLLECT) Normal Reference Range: Negative SARS-CoV-2 (COVID 19) Negative RAPID METHOD Quidel Joan Analyzer TARA, lateral flow immunofluorescent A POSITIVE Group B Beta Streptococcus is not isolated. A POSITIVE == ==== Impression /Plan: 38 wks + 2 days intrauterine for repeat section and bilateral salpingectomy. Preparations in progress for delivery.
--- NOTE | 2021-02-01 07:34 | EX.PCM.OBRPT ---
Maternal Data Information Final SHANTA: 02/13/21 Gestational age: 38 weeks 2 days Details Operative Information Date of Procedure: 02/01/21 Pre-Operative Diagnosis: Prior Section, Desires Permanent Sterilization, Breech Presentation, Uncontrolled Gestational Diabetes Post-Operative Diagnosis: Prior Section, Desires Permanent Sterilization, Breech Presentation, Uncontrolled Gestational Diabetes, Left ovarian Mass, Adhesions Classification: Scheduled Procedure Type: tubal ligation (With right salpingectomy and left partial salpingectomy) clinical laboratory scientist #1: Missy Reynolds Type of Anesthesia: Spinal Anesthesiologist: Venkat Caballero Antibiotic Given: Ancef 3 grams IV x1 Drain: Corcoran to straight drain Estimated Blood Loss: 500 cc Fluids Replaced: Crystalloid Findings Description of Procedure: Surgeon: Alcon Cordoba MD, FACOG Indication: This is a 35-year-old who presents for her fifth at 38+ weeks gestation. care has been remarkable for poorly controlled gestational diabetes and breech presentation. She also desires permanent sterilization. The patient has been counseled regarding the risk and indications of this procedure including the possibility of bleeding infection and injury to surrounding structures such as bowel bladder. She also understands the permanent nature of a tubal, the failure rate of 1 to 2%, and the availability of other nonpermanent control options. All questions were answered. Procedure: Patient was taken to the operating room where after spinal anesthesia was placed, the patient was prepped and draped in usual sterile fashion and a Corcoran catheter was placed. The abdomen was entered through the patient's prior Pfannenstiel incision and peritoneum was entered bluntly. After developing a bladder flap on the lower uterine segment a low transverse incision was made on the uterus and breech was easily delivered onto the operative field and nose mouth and oropharynx were bulb suctioned. Subsequently a viable female was born with Apgars of 8/9. The infant was noted to cry move all extremities vigorously on the operative field. The umbilical cord was doubly clamped and ligated and infant handed to the nursery personnel who were present for the delivery. Placenta was delivered and noted to be 3 vessels and normal. Uterus was exteriorized and remaining placental tissue was removed. Some adhesions were taken down with LigaSure device between the left anterior uterus and left rectus abdominis muscle. The uterus was then closed in 2 layers first with running locked 0 Vicryl suture followed by a second imbricating layer with 0 Vicryl suture. 0 Vicryl suture was then used in a horizontal mattress interrupted fashion to affect final hemostasis of the uterine incision line. The right fallopian tube was examined and noted to densely adhered to the right pelvic sidewall. We were unable to see the fimbriated end but approximately a 3 cm segment of this fallopian tube was removed. There was some dilation of the proximal right fallopian tube and round ligament and this area was ligated with the LigaSure device and oversewn with interrupted and [id number] 0 Vicryl suture. A normal right fallopian tube was visualized and after ligating adhesions was removed with LigaSure device. The left ovary was visualized and a 1 cm left ovarian mass was removed with the LigaSure device and sent with the fallopian tubes. The uterus was returned to the pelvis. Hemostasis was noted and rectus abdominis muscles were reapproximated in the midline with interrupted Number 0 Vicryl suture in a horizontal mattress fashion. Fascia was closed with two running Number 1 PDS Strata fix suture. Subcutaneous tissue was irrigated with copious amounts of saline solution and then closed in 2 layers with running 3-0 Vicryl suture. Skin was closed with 4-0 monocryl suture in a running subcuticular fashion. Steri strips and a Mepilex dressing were placed across the incision. The patient tolerated the procedure well and was taken to the recovery room in satisfactory condition. Sponge, needle, and instrument counts were all reportedly correct. EBL was 500 cc. Ancef 3 gms IV was given prior to the procedure. Presentation: Positive for Complete Breech Amniotic Fluid Description: Clear Placental Delivery Description: Spontaneous Placenta Disposition: [facility] Cord Vessel Description: 3 Vessels Cord Entanglement: None Infant A Gender: Female (1 minute): 8 (5 minute): 9 Complications Risks of Surgery Discussed w/Patient: Bleeding, Infection, Permanency, Failure Rate of 1 to 2%, Injury to surrounding structure(s) including bowel and bladder and Availability of other non-permanent control options Complications: None
--- NOTE | 2021-02-01 07:39 | PCM.DC ---
Documented by User: Dr. Alcon Cordoba MD 02/01/21 09:12 Discharge Instructions Diet Discharge Diet: No restrictions Activity May resume sexual activity in: 4-6 weeks Lifting Restrictions: 20 pounds Dressing / Incision Call your doctor if your incision/area has: Continuous Slow Oozing, Sudden Increased Bleeding, Increased Pain/ Swelling, Increased Redness and Foul Smelling Discharge Call your doctor if you observe: Fever of 101 or Higher, Inability to urinate, Inability to have a bowel movement and Using more than 1 pad per hour Follow Up Care Please Follow Up With: Alcon Cordoba MD When: Call [phone] for appointment to be seen in 2 weeks. Test Results: Test results from this visit will be discussed in further detail at your follow-up appointment, if applicable. Discharge Plan Admission Admit Date/Time: 02/01/21 05:00 Primary Reason for Your Visit: Repeat and Tubal Attending Provider: Alcon Cordoba Primary Care Provider: Care Physician,No Primary Discharge Orders/Prescriptions Prescriptions: New oxycodone 5 mg capsule 5 mg PO Q6H PRN (Reason: pain) 7 Days Qty: 10 RF: 0 Continued docusate sodium 100 MG capsule 100 mg PO BID PRN PRN (Reason: Constipation) Qty: 60 RF: 1 levothyroxine 75 mcg tablet RF: 0 Discontinued insulin lispro 100 unit/mL insulin pen SUBCUT RF: 0 Levemir FlexTouch U-100 Insuln 100 unit/mL (3 mL) insulin pen SUBCUT RF: 0 Referrals / Follow Up: Care Physician,No Primary [Primary Care Provider] - Disposition Disposition (needs filled in before D/C Order can be placed): Home, Self Care Documented by User: Dr. Binh Bueno MD 02/02/21 08:54 Discharge Plan Admission Admit Date/Time: 02/01/21 05:00 Primary Reason for Your Visit: Repeat and Tubal Attending Provider: Alcon Cordoba Primary Care Provider: Care Physician,No Primary Discharge Orders/Prescriptions Prescriptions: New oxycodone 5 mg capsule 5 mg PO Q6H PRN (Reason: pain) 7 Days Qty: 10 RF: 0 Continued docusate sodium 100 MG capsule 100 mg PO BID PRN PRN (Reason: Constipation) Qty: 60 RF: 1 levothyroxine 75 mcg tablet RF: 0 Discontinued insulin lispro 100 unit/mL insulin pen SUBCUT RF: 0 Levemir FlexTouch U-100 Insuln 100 unit/mL (3 mL) insulin pen SUBCUT RF: 0 Referrals / Follow Up: Care Physician,No Primary [Primary Care Provider] - Disposition Disposition (needs filled in before D/C Order can be placed): Home, Self Care
--- NOTE | 2021-02-01 07:55 | OV_PTH ---
PATIENT: NICOL VILLEGAS LOC: [facility] U#:[id number] AGE/SX: 35/F ROOM: [facility]004 RE02/01/[address]: Dr. Alcon Cordoba MD : 1985 BED: 1 DIS: 02/03/2021 SPEC #: [id number] RECD: 02/01/21 09:48 STATUS: LIZZY ADRIAN #: [id number] ANNETTE: 02/01/21 07:[address]: Alcon Cordoba DEPT: SURGICAL PATHOLOGY RECD BY: Jennifer Richardson ENTERED: 02/01/21 10:06 SP TYPE: OVARY OTHR DR: Dolores Primary Care Phys Tissues: Ovary, NOS Procedures: Surgery Specimen Level IV HEADER OPERATION: Tubal ligation PRE-OP DIAGNOSIS: Sterilization TISSUE SUBMITTED: Fallopian tubes, left ovarian mass MICROSCOPIC DIAGNOSIS Fallopian tubes, left ovarian mass: Left fallopian tube - no pathologic diagnosis. 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 See comment. SJ:ruben 02/04/2021 COMMENT The tissue identified as right fallopian tube and detached piece of soft tissue consists of fibroadipose and fibrovascular tissue. Fallopian tube is not identified. Clinical correlation and appropriate follow up are necessary. Case has been reviewed in consultation with Dr. Aponte who concurs with the above diagnosis. IDC:[email or web address] MICROSCOPIC DESCRIPTION Slides are reviewed. GROSS DESCRIPTION Received in fixative is one container labeled with the patient's name and designated fallopian tubes and ovarian mass, stitch on right. The specimen consists of bilateral fallopian tubes and a detached nodular mass, identified as left ovarian mass. The right fallopian tube is identified by a stitch. The right fallopian tube measures 3.5 cm in length and 0.3 cm in diameter. The fimbrial end is not identified. Also present is a small segment of garcia-pink soft tissue measuring 1 x 0.5 x 0.2 cm. Sections do not reveal any mass lesion. The left fallopian tube measures 7 cm in length and 0.6 cm in diameter. The fimbrial end is identified. Sections reveal unremarkable cut surfaces. Also present in the container is an ovoid nodular piece of garcia-pink soft tissue mass weighing 2.8 gm and measuring 2.5 x 2 x 1 cm. The resection margin is inked black and the rest of the cut surface is inked blue. No papillation is identified. Sections reveal solid cut surfaces. Mobile Sales Technician sections are submitted as follows: 1 & 2 - ovarian mass, entirely submitted, 3??left fallopian tube, 4??right fallopian tube and detached piece of tissue, entirely submitted. / RADHA:ruben 02/01/21 TC: 5 CPT: 73365, 10287 x2
[2021-02-01] MEDS: Oxytocin 30 units/NS 500 ml 30 UNITS/500 ML IV.SOLN 167 UNITS IV (09:30)
[2021-02-01 09:45] LABS: Bedside Glucose 130 mg/dL (70-110)
[2021-02-01 09:48] LABS: Pathology Specimen OB SEE PATHOLOGY REPORT
[2021-02-01] MEDS: Ketorolac 30 MG/ML Syringe IV ×3 (10:31→22:18)
[2021-02-01] MEDS: Lactated Ringers 1,000 ML 100 ML IV (12:41)
[2021-02-01] MEDS: Ondansetron 4 MG/2 ML Vial IV (13:24)
--- NOTE | 2021-02-01 13:38 | NURSING ---
GIOVANNA Rogers administered meds under direction of this Instructor. MATTHEW Mora, [facility]
[2021-02-01] MEDS: Cefazolin 1 GM/50 ML BAG IV ×2 (15:33→22:19)
--- NOTE | 2021-02-01 15:57 | NURSING ---
ghassan pad changed. small amount of rubra
[2021-02-01] MEDS: Enoxaparin 40 MG/0.4 ML Syringe SC (22:18)
[2021-02-02] VITALS (8 sets, daily range): BP systolic 92–136; BP diastolic 40–61; PULSE 68–86; RESP 16–18; TEMP 36.1–36.5; O2SAT 97–99
[2021-02-02] MEDS: Acetaminophen 500 MG Tablet 1000 MG PO ×4 (00:04→18:25)
[2021-02-02] MEDS: Ketorolac 30 MG/ML Syringe IV (05:04)
[2021-02-02 05:24] LABS: Hematocrit 30.2 % (37-47); Hemoglobin 9.9 g/dL (12.0-15.0); Mean Corp Hgb Conc 32.8 g/dL (32-36); Mean Corpuscular Hgb 28.4 pg (27.0-32.0); Mean Corpuscular Volume 86.8 fL (81-99); Mean Platelet Vol. 9.9 fl (6.2-12.0); Platelet Count 207 K/mm3 (150-450); RBC Distribution Width CV 14.4 % (11.6-14.6); RBC Distribution Width SD 45.4 fl (35.1-43.9); Red Blood Count 3.48 M/mm3 (4.2-5.4); White Blood Count 10.1 K/mm3 (4.4-11.0)
[2021-02-02 05:25] LABS: Bedside Glucose 115 mg/dL (70-110)
[2021-02-02 05:38] LABS: Creatinine, Serum 0.63 mg/dL (0.55-1.02); EST Glomerular Filtration Rate 114 mL/min (>60); Est Glom Filt Rate - Afr Amer 138 mL/min (>60); Estimated Creatinine Clearance 123.51 ml/min
[2021-02-02] MEDS: Levothyroxine 75 MCG Tablet PO (06:57)
--- NOTE | 2021-02-02 08:54 | PCM.PN.OB ---
Subjective Subjective No overnight complaints. Pain well controlled. Objective Data Objective Data Vital Signs: Vital Signs Temp Pulse Resp BP Pulse Ox 97 F L 72 18 92/40 L 97 02/02/21 03:04 02/02/21 06:55 02/02/21 06:55 02/02/21 03:04 02/02/21 06:55 Oxygen Delivery Method Room Air Weight: 290 lb Body Mass Index (BMI) 45.4 Intake & Output: Intake and Output for Last 24 Hours 01/31/21 02/01/21 02/02/21 23:59 23:59 23:59 Intake Total 3028.33 / 3028.33 Output Total 100 / 100 200 / 200 Balance 2928.33 / 2928.33 -200 / -200 Lab / Micro Data Result Diagrams: 02/02/21 05:10 02/02/21 05:10 Labs: Laboratory Results - last 24 hr 02/01/21 09:36: POC Glucose 130 H 02/02/21 05:09: POC Glucose 115 H 02/02/21 05:10: Creatinine 0.63, Estim Creat Clear Calc 123.51, Est GFR (MDRD) Af Amer 138, Est GFR (MDRD) Non-Af 114 02/02/21 05:10: WBC 10.1, RBC 3.48 L, Hgb 9.9 L, Hct 30.2 L, MCV 86.8, MCH 28.4, MCHC 32.8, RDW Std Deviation 45.4 H, RDW Coeff of Jeffery 14.4, Plt Count 207, MPV 9.9 Micro: Microbiology 02/01/21 05:50 Nasal Secretion SARS-CoV-2 Antigen (Rapid) - Final Physical Exam Const alert, oriented x3, no apparent distress, average body habitus, healthy appearing and well nourished HEENT normocephalic and moist oral mucous membranes Head and Scalp: atraumatic Face and Sinus: normal facial exam Eyes PERRL Neck full ROM Resp normal respiratory effort, no retractions and no use of accessory muscles Psych mental status grossly normal, affect normal, speech normal and activity/motor behavior normal Assessment & Plan (1) delivery delivered: PLAN: Postop day 1 status post repeat section bilateral tubal ligation. Pain well controlled. Breast-feeding. GDM A2, baby in special care nursery for blood sugar control. If okay with charging machine operator to discharge baby okay to discharge patient today. Otherwise likely home tomorrow
[2021-02-02] MEDS: Senna/Docusate Sodium 1 Tablet PO (10:35)
[2021-02-02] MEDS: Ibuprofen 600 MG Tablet PO ×2 (13:03→18:25)
[2021-02-02] MEDS: Bisacodyl 10 MG Suppository RC (21:14)
[2021-02-02] MEDS: Enoxaparin 40 MG/0.4 ML Syringe SC (22:54)
[2021-02-03] MEDS: Ibuprofen 600 MG Tablet PO ×2 (00:12→06:44)
[2021-02-03] MEDS: Acetaminophen 500 MG Tablet 1000 MG PO ×2 (00:12→06:44)
[2021-02-03 03:34] VITALS: BP 110/61; PULSE 68; RESP 18; TEMP 36.4
[2021-02-03] MEDS: Levothyroxine 75 MCG Tablet PO (06:44)
[2021-02-03 07:25] VITALS: BP 107/54; PULSE 74; RESP 16; TEMP 36.3; O2SAT 100
--- NOTE | 2021-02-03 10:28 | PCM.DC.BLA ---
Discharge Summary Date of Admission: 02/01/21 Date of Discharge: 02/03/21 Summary: Patient arrived on 02/01/2021 for repeat section bilateral tubal ligation at 38 weeks with GDM A2. Repeat bilateral tubal ligation on 02/01/2021. Baby went to special care nursery for blood sugar control. Patient with routine recovery. Discharge home on 02/03/2021 Physical Exam Const alert, oriented x3, average body habitus, no limitations, healthy appearing and well nourished Neck full ROM Resp normal respiratory effort, normal air movement and no retractions GI normal to inspection, nondistended, normoactive bowel sounds GI Narrative: Bandage clean dry and intact Extremity normal to inspection and full ROM Psych mental status grossly normal, thought process normal, cooperative, affect normal and speech normal Meaningful Use Info Meaningful Use Diagnoses (Choose all that apply): None applicable Discharge Plan Admission Admit Date/Time: 02/01/21 05:00 Primary Reason for Your Visit: Repeat and Tubal Attending Provider: Alcon Cordoba Primary Care Provider: Care Physician,Dolores Primary Discharge Orders/Prescriptions Prescriptions: New oxycodone 5 mg capsule 5 mg PO Q6H PRN (Reason: pain) 7 Days Qty: 10 RF: 0 Continued docusate sodium 100 MG capsule 100 mg PO BID PRN PRN (Reason: Constipation) Qty: 60 RF: 1 levothyroxine 75 mcg tablet RF: 0 Discontinued insulin lispro 100 unit/mL insulin pen SUBCUT RF: 0 Levemir FlexTouch U-100 Insuln 100 unit/mL (3 mL) insulin pen SUBCUT RF: 0 Referrals / Follow Up: Care Physician,No Primary [Primary Care Provider] - Disposition Disposition (needs filled in before D/C Order can be placed): Home, Self Care
--- NOTE | 2021-02-03 10:29 | PN.OBGYN_ITS ---
Subjective Subjective No overnight complaints. Pain well controlled. Objective Data Objective Data Vital Signs: Vital Signs Temp Pulse Resp BP Pulse Ox 97.4 F L 74 16 107/54 L 100 02/03/21 07:25 02/03/21 07:25 02/03/21 07:25 02/03/21 07:25 02/03/21 07:25 Oxygen Delivery Method Room Air Weight: 290 lb Body Mass Index (BMI) 45.4 Intake & Output: Intake and Output for Last 24 Hours 02/01/21 02/02/21 02/03/21 23:59 23:59 23:59 Intake Total 3028.33 / 3028.33 Output Total 100 / 100 900 / 900 Balance 2928.33 / 2928.33 -900 / -900 Lab / Micro Data Result Diagrams: 02/02/21 05:10 02/02/21 05:10 Micro: Microbiology 02/01/21 05:50 Nasal Secretion SARS-CoV-2 Antigen (Rapid) - Final Physical Exam Const alert, oriented x3, no apparent distress, average body habitus, healthy appea ring and well nourished HEENT normocephalic and moist oral mucous membranes Head and Scalp: atraumatic Face and Sinus: normal facial exam Eyes PERRL Neck full ROM Resp normal respiratory effort, no retractions and no use of accessory muscles GI normal to inspection, nondistended, normoactive bowel sounds GI Narrative: Bandage clean dry and intact Extremity normal to inspection and no clubbing, cyanosis or edema Psych mental status grossly normal, affect normal, speech normal and activity/motor behavior normal Assessment & Plan (1) delivery delivered: PLAN: Postop day 2 status post repeat section bilateral tubal ligation. GDM A2, blood sugars well controlled on no medication, will follow . Okay to discharge home today if okay with correctional therapy director
[2021-02-03] MEDS: Senna/Docusate Sodium 1 Tablet PO (10:52)
== END 2021-02-03 12:00 | disposition home or self-care (01) | DRG 539 ==
PROVIDERS: Admitting Provider Obstetrics & Gynecology; Visit Provider Obstetrics & Gynecology
PROC: 10D00Z1 Extraction of Products of Conception, Low, Open Approach (ICD-10-PCS; CPT 59514; principal; 2021-02-01 07:15)
DX: O34.211 Maternal care for low transverse scar from previous cesarean delivery (principal); Z3A.38 38 weeks gestation of pregnancy; Z37.0 Single live birth; O24.425 Gestational diabetes mellitus in childbirth, controlled by oral hypoglycemic drugs; O32.1XX0 Maternal care for breech presentation, not applicable or unspecified; O99.284 Endocrine, nutritional and metabolic diseases complicating childbirth; E03.9 Hypothyroidism, unspecified; O34.10 Maternal care for benign tumor of corpus uteri, unspecified trimester; D27.1 Benign neoplasm of left ovary; Z30.2 Encounter for sterilization; Z79.84 Long term (current) use of oral hypoglycemic drugs; Z79.890 Hormone replacement therapy; Z87.891 Personal history of nicotine dependence
CPT/HCPCS: 82565; 82962; 85025; 85027; 86850; 86900; 86901; 87426; 88305; 99218; 99251; J7120; G0378; G0463; J2405